=== PATIENT | male | born 1990 | race African-American/Black ===

== ENCOUNTER 2018-02-13 08:45 | Emergency (ER) | payer MEDICARE ==
[~2018-02-13] VITALS: Ht 177.8 cm; Wt 81.8 kg
[2018-02-13 08:52] VITALS: Ht 177.8 cm; Wt 81.8 kg
[2018-02-13 10:55] VITALS: BP 133/78
== END 2018-02-13 10:56 | disposition home or self-care (01) ==
LOC: D.ER 08:45
DX: R51 Headache (principal); V43.52XA Car driver injured in collision with other type car in traffic accident, initial encounter; Y93.89 Activity, other specified; Y92.410 Unspecified street and highway as the place of occurrence of the external cause